=== PATIENT | female | born 1955 | race Caucasian/White ===

== ENCOUNTER 2018-09-15 14:07 | Emergency (ER) | payer MEDICARE ==
[~2018-09-15] VITALS: Ht 167.6 cm; Wt 63.0 kg
--- OUTSIDE RECORDS SUMMARY | 2018-09-15 14:11 | XMS REPORT ---
Author Author [facility] Address Unknown Phone Unavailable Care Team Providers Care Commercial Artist Name Role Phone Unavailable Unavailable Payers Payer Name Policy Type Policy Number Effective Date Expiration Date Problems This patient has no known problems. Allergies, Adverse Reactions, Alerts Allergy Name Allergy Type Status Severity Reaction(s) Onset Date Inactive Date Treating Clinician Comments levofloxacin DA Active U 2018-08-31 00:00:00 levofloxacin DA Active U 2018-08-11 00:00:00 Medications This patient has no known medications.
--- OUTSIDE RECORDS SUMMARY | 2018-09-15 14:11 | XMS REPORT | Clinical Summary ---
Author Author [facility] Organization [facility] Address Unknown Phone Unavailable Care Team Providers Care Retail Service Representative Name Role Phone Ramiro Elizabeth PCP Allergies No Known Allergies Medications End Date Status Medication Sig Dispensed Refills Start Date 09/15/2017 Discontinued aspirin 325 MG tablet Take 650 mg 0 by mouth every 6 (six) hours as needed (migraine). 10/15/2017 docusate sodium (COLACE) Take 1 100 capsule 1 100 MG capsule capsule (100 7 mg total) by mouth 2 (two) times a day as needed for constipation for up to 30 days. 10/15/2017 rivaroxaban (XARELTO) 20 Take 1 tablet 30 tablet 0 mg tablet (20 mg total) 7 by mouth daily for 30 days. 09/25/2017 HYDROcodone-acetaminophen Take 1 tablet 50 tablet 0 (NORCO) 5-325 mg per by mouth 7 tabletIndications: every 6 (six) Fracture, hours as intertrochanteric, right needed for femur, closed, initial moderate pain encounter (HCC) for up to 7 days. Max Daily Amount: 4 tablets 10/15/2017 HYDROcodone-acetaminophen Take 1 tablet 30 tablet 0 (NORCO) 5-325 mg per by mouth 8 tabletIndications: every 6 (six) Fracture, hours as intertrochanteric, right needed for femur, closed, initial moderate pain encounter (HCC) for up to 7 days. Max Daily Amount: 4 tablets 12/15/2017 traMADol (ULTRAM) 50 mg Take 1 tablet 60 tablet 0 tablet (50 mg total) 8 by mouth every 6 (six) hours as needed for moderate pain for up to 33 days. 12/15/2017 HYDROcodone-acetaminophen Take 1 tablet 30 tablet 0 (NORCO) 5-325 mg per by mouth 8 tablet every 4 (four) hours as needed for moderate pain or severe pain for up to 33 days. Max Daily Amount: 6 tablets Active Problems Problem Noted Date Fracture, intertrochanteric, right femur, closed, initial encounter 09/11/2017 Encounters Care Team Description Date Type Specialty Eve Kulkarni MA Fracture, intertrochanteric, right femur, closed, initial encounter (Primary Dx) 02/09/2018 Orders Only Orthopedic Surgery Eve Kulkarni MA Fracture, intertrochanteric, right femur, closed, initial encounter (Primary Dx) 01/23/2018 Orders Only Orthopedic Surgery Roro Santana MA 11/28/2017 Telephone Orthopedic Surgery Eyal Fabian MD Fracture, intertrochanteric, right femur, closed, initial encounter (Primary Dx) 11/12/2017 Office Visit Orthopedic Surgery Linda Bales MA Fracture, intertrochanteric, right femur, closed, initial encounter (Primary Dx) 10/29/2017 Orders Only Orthopedic Surgery Eyal Fabian MD Fracture, intertrochanteric, right femur, closed, initial encounter (Primary Dx) 10/08/2017 Office Visit Orthopedic Surgery Roro Santana MA 10/08/2017 Telephone Orthopedic Surgery Roro Santana MA 10/07/2017 Telephone Orthopedic Surgery Eyal Fabian MD 10/03/2017 Telephone Orthopedic Surgery Eyal Fabian MD Fracture, intertrochanteric, right femur, closed, initial encounter (Primary Dx) 09/18/2017 Office Visit Orthopedic Surgery Ana Hill RN 09/16/2017 Patient Quality Outreach Roro Santana MA 09/15/2017 Orders Only Orthopedic Surgery Eyal Fabian MD 09/15/2017 Telephone Orthopedic Surgery Chuy Valdovinos MD [place], Sandhya-Rani, MD Fracture, intertrochanteric, right femur, closed, initial encounter (Primary Dx) 09/11/2017 Hospital General Surgery - Encounter 09/15/2017 after 09/14/2017 Social History Date Tobacco Use Types Packs/Day Years Used Never Smoker Smokeless Tobacco: Never Used Alcohol Use Drinks/Week oz/Week Comments Yes 35 Cans of 21.0 beer Sex Assigned at Date Recorded Not on file Industry Job Start Date Occupation Not on file Not on file Not on file Travel End Travel History Travel Start No recent travel history available. Last Filed Vital Signs Time Taken Vital Sign Reading 11/12/2017 10:21 AM APPLICATION TECHNICIAN Blood Pressure 143/87 11/12/2017 10:21 AM APPLICATION TECHNICIAN Pulse 114 09/15/2017 12:25 PM APPLICATION TECHNICIAN Temperature 37.1 C (98.8 F) 09/15/2017 12:25 PM APPLICATION TECHNICIAN Respiratory Rate 17 09/15/2017 12:25 PM APPLICATION TECHNICIAN Oxygen Saturation 99% - Inhaled Oxygen - Concentration 11/12/2017 10:21 AM APPLICATION TECHNICIAN Weight 58.5 kg (129 lb) 11/12/2017 10:21 AM APPLICATION TECHNICIAN Height 167.6 cm (5' 6") 11/12/2017 10:21 AM APPLICATION TECHNICIAN Body Mass Index 20.82 Plan of Treatment Health Maintenance Due Date Last Done Comments CERVICAL CANCER SCREENING 1977 BREAST CANCER SCREENING 2006 COLON CANCER SCREENING 2006 SHINGLES VACCINES (1 of 2006 2) INFLUENZA VACCINE 04/29/2018 Implants Device Identifier Shelf Expiration Date Model / Serial / Lot Implanted Type Area Manufactur er 1896 [id number] / / Screw Bone Lkng Fulthrd Ti 5x35mm - Hip Joint Right: Hip MORIAH [id number] Implants ORTHOPEDIC Implanted: Qty: 1 on 09/12/2017 by Eyal Loera MD [id number] / / [id number] Nail Im Trchntrc W/ Set Scr Ti Intramedul Right: Hip MORIAH 125deg [id number] Strl - radha Nail ORTHOPEDIC [id number] Implanted: Qty: 1 on 09/12/2017 by Eyal Fabian MD [id number] / / Screw Bone Lag Ti 10.5x90mm - Orthopedic Right: Hip MORIAH [id number] Trauma ORTHOPEDIC Implanted: Qty: 1 on 09/12/2017 by Implants Eyal Loera MD Procedures Comments Procedure Name Priority Date/Time Associated Diagnosis XR HIP 2-3 VIEWS RIGHT Routine 11/12/2017 Fracture, 9:52 AM APPLICATION TECHNICIAN intertrochanteric, right femur, closed, initial encounter XR HIP 2-3 VIEWS RIGHT Routine 10/08/2017 Fracture, 10:26 AM APPLICATION TECHNICIAN intertrochanteric, right femur, closed, initial encounter XR HIP 2-3 VIEWS RIGHT Routine 09/18/2017 Fracture, 10:52 AM APPLICATION TECHNICIAN intertrochanteric, right femur, closed, initial encounter ZZESTIMATED GFR Routine 09/14/2017 4:30 AM APPLICATION TECHNICIAN BASIC METABOLIC PANEL Routine 09/14/2017 4:30 AM APPLICATION TECHNICIAN HC COMPLETE BLD COUNT Routine 09/14/2017 W/AUTO DIFF 4:30 AM APPLICATION TECHNICIAN after 09/14/2017 Results * XR Hip 2-3 View Right (11/12/2017 9:52 AM APPLICATION TECHNICIAN) Only the most recent of 3 results within the time period is included. Narrative Performed At [facility] AP and frog leg lateral views of the right hip were obtained demonstrating a intertrochanteric fracture of hip fixed with a cephallomedullary device. Expected compression at the fracture site noted. No visible hardware failure or loosening. Performing Organization Address City/[facility]/Zipcode Phone Number [facility] [address] [place] [address] * Estimated GFR (09/14/2017 4:30 AM APPLICATION TECHNICIAN) GFR Non Af Amer 85 mL/min/1.73 m2 [facility] DEPARTMENT OF PATHOLOGY AND GENOMIC MEDICINE GFR Af Amer >90 mL/min/1.73 m2 [facility] DEPARTMENT OF Comment: PATHOLOGY AND Chronic kidney disease: <60 GENOMIC MEDICINE mL/min/1.73m2 Kidney failure: <15 mL/min/1.73m2 The estimated GFR is calculated from the IDMS-traceable Modification of Diet in Renal Disease Equation. The accuracy of the calculation is poor when the creatinine is normal. Calculated values >90 mL/min/1.73m2 are not reported. This equation has not been validated in children (<18 years), women, the elderly (>70 years), or ethnic groups other than Caucasians and Americans. Specimen Plasma specimen Performing Organization Address City/State/Zipcode Phone Number [facility] DEPARTMENT [address] [place] [address] PATHOLOGY AND GENOMIC MEDICINE * CBC with platelet and differential (09/14/2017 4:30 AM APPLICATION TECHNICIAN) WBC 7.83 4.50 - 11.00 k/uL [facility] DEPARTMENT OF PATHOLOGY AND GENOMIC MEDICINE RBC 3.00 (L) 4.20 - 5.50 m/uL [facility] OF PATHOLOGY AND GENOMIC MEDICINE HGB 10.0 (L) 12.0 - 16.0 g/dL [facility] DEPARTMENT OF PATHOLOGY AND GENOMIC MEDICINE HCT 29.5 (L) 37.0 - 47.0 % [facility] DEPARTMENT OF PATHOLOGY AND GENOMIC MEDICINE MCV 98.3 82.0 - 100.0 fL [facility] DEPARTMENT OF PATHOLOGY AND GENOMIC MEDICINE MCH 33.3 27.0 - 34.0 pg [facility] DEPARTMENT OF PATHOLOGY AND GENOMIC MEDICINE MCHC 33.9 31.0 - 37.0 g/dL [facility] OF PATHOLOGY AND GENOMIC MEDICINE RDW - SD 43.2 37.0 - 55.0 fL [facility] OF PATHOLOGY AND GENOMIC MEDICINE MPV 12.0 8.8 - 13.2 fL [facility] DEPARTMENT OF PATHOLOGY AND GENOMIC MEDICINE Platelet count 162 150 - 400 k/uL [facility] DEPARTMENT PATHOLOGY AND GENOMIC MEDICINE Nucleated RBC 0.00 /100 WBC [facility] DEPARTMENT OF PATHOLOGY AND GENOMIC MEDICINE Neutrophils 61.1 39.0 - 69.0 % [facility] DEPARTMENT OF PATHOLOGY AND GENOMIC MEDICINE Lymphocytes 23.0 (L) 25.0 - 45.0 % [facility] DEPARTMENT OF PATHOLOGY AND GENOMIC MEDICINE Monocytes 14.3 (H) 0.0 - 10.0 % [facility] DEPARTMENT OF PATHOLOGY AND GENOMIC MEDICINE Eosinophils 0.9 0.0 - 5.0 % [facility] DEPARTMENT OF PATHOLOGY AND GENOMIC MEDICINE Basophils 0.3 0.0 - 1.0 % [facility] DEPARTMENT PATHOLOGY AND GENOMIC MEDICINE Immature granulocytes 0.4Comment: "Immature 0.0 - 1.0 % [facility] DEPARTMENT OF granulocytes" (promyelocytes, PATHOLOGY AND myelocytes, metamyelocytes) [facility] Specimen Blood Performing Organization Address City/State/Zipcode Phone Number [facility] [address] [place] [address] PATHOLOGY AND GENOMIC MEDICINE * Basic metabolic panel (09/14/2017 4:30 AM APPLICATION TECHNICIAN) Sodium 138 135 - 148 mEq/L [facility] DEPARTMENT OF PATHOLOGY AND GENOMIC MEDICINE Potassium 4.0 3.5 - 5.0 mEq/L [facility] DEPARTMENT OF PATHOLOGY AND GENOMIC MEDICINE Chloride 99 98 - 112 mEq/L [facility] DEPARTMENT OF PATHOLOGY AND GENOMIC MEDICINE CO2 26 24 - 31 mEq/L [facility] DEPARTMENT OF PATHOLOGY AND GENOMIC MEDICINE Anion gap 13 7 - 15 mEq/L [facility] DEPARTMENT OF Comment: PATHOLOGY AND Starting from December [facility] MEDICINE , anion gap calculation no longer incorporates potassium. Please note the change. BUN 9 8 - 23 mg/dL [facility] DEPARTMENT OF PATHOLOGY AND GENOMIC MEDICINE Creatinine 0.7 0.5 - 0.9 mg/dL [facility] DEPARTMENT OF PATHOLOGY AND GENOMIC MEDICINE Glucose 133 (H) 65 - 99 mg/dL [facility] DEPARTMENT OF PATHOLOGY AND GENOMIC MEDICINE Calcium 9.4 8.8 - 10.2 mg/dL [facility] DEPARTMENT OF PATHOLOGY AND GENOMIC MEDICINE Specimen Plasma specimen Performing Organization Address City/State/Zipcode Phone Number [facility] DEPARTMENT [address] [place] [address] PATHOLOGY AND GENOMIC MEDICINE after 09/14/2017 Insurance Payer Benefit Subscriber ID Type Phone Address Plan / Group UHC MEDICARE AARP xxxxxxxxx [facility] [place] COM[place]TE MCR Advance Directives Patient has advance care planning documents, and code status on file. For more i nformation, please contact: Elvin Khan [address] [facility] [place] [address] Date Inactivated Comments Code Status Date Activated 09/15/2017 7:09 PM Full Code 09/12/2017 5:44 PM Code Status decision reached by: Patient
== END 2018-09-15 15:15 | disposition left against medical advice (07) ==
LOC: ER 14:07
DX: J34.89 Other specified disorders of nose and nasal sinuses (principal)

== ENCOUNTER 2018-12-30 16:40 | Emergency (ER) | payer MEDICARE ==
[~2018-12-30] VITALS: Ht 167.6 cm; Wt 63.0 kg
--- OUTSIDE RECORDS SUMMARY | 2018-12-30 16:43 | XMS REPORT | Clinical Summary ---
Author Author [facility] Organization [place] [facility] Address Unknown Phone Unavailable Care Team Providers Care Battalion Chief Name Role Phone Ramiro Elizabeth PCP Allergies No Known Allergies Medications No known medications Active Problems Problem Noted Date Fracture, intertrochanteric, right femur, closed, initial encounter 09/11/2017 Encounters Care Team Description Date Type Specialty Eve KulkarniRAYNE Fracture, intertrochanteric, right femur, closed, initial encounter (Primary Dx) 02/09/2018 Orders Only Orthopedic Surgery Kulkarni Eve, MA Fracture, intertrochanteric, right femur, closed, initial encounter (Primary Dx) 01/23/2018 Orders Only Orthopedic Surgery after 12/29/2017 Social History Date Tobacco Use Types Packs/Day Years Used Never Smoker Smokeless Tobacco: Never Used Alcohol Use Drinks/Week oz/Week Comments Yes 35 Cans of 21.0 beer Sex Assigned at Date Recorded Not on file Industry Job Start Date Occupation Not on file Not on file Not on file Travel End Travel History Travel Start No recent travel history available. Last Filed Vital Signs Not on file Plan of Treatment Health Maintenance Due Date Last Done Comments CERVICAL CANCER SCREENING 1977 BREAST CANCER SCREENING 2006 COLON CANCER SCREENING 2006 SHINGLES VACCINES (#1) 2006 INFLUENZA VACCINE 04/29/2018 Implants Device Identifier Shelf Expiration Date Model / Serial / Lot Implanted Type Area Manufactur er 1896 [id number] / / Screw Bone Lkng Fulthrd Ti 5x35mm - Hip Joint Right: Hip MORIAH [id number] Implants ORTHOPEDIC Implanted: Qty: 1 on 09/12/2017 by Eyal Loera MD [id number] / / [id number] Nail Im Trchntrc W/ Set Scr Ti Intramedul Right: Hip MORIAH 125deg [id number] Strl - radha Nail ORTHOPEDIC [id number] Implanted: Qty: 1 on 09/12/2017 by Eyal Fabian MD [id number] / / Screw Bone Lag Ti 10.5x90mm - Orthopedic Right: Hip MORIAH [id number] Trauma ORTHOPEDIC Implanted: Qty: 1 on 09/12/2017 by Implants S Eyal Fabian MD Results Not on fileafter 12/29/2017 Insurance Payer Benefit Subscriber ID Type Phone Address Plan / Group UHC MEDICARE AARP xxxxxxxxx O MEDICARE COMPLETE MCR Advance Directives Patient has advance care planning documents, and code status on file. For more i nformation, please contact: Elvin Khan [address] [facility] [place] [address] Date Inactivated Comments Code Status Date Activated 09/15/2017 7:09 PM Full Code 09/12/2017 5:44 PM Code Status decision reached by: Patient
--- NOTE | 2018-12-30 18:40 | Diagnostic Imaging Report ---
Radiographs of the right knee - 3 views HISTORY: Pain COMPARISON: None available. FINDINGS: Bones: Nondisplaced posterior patellar fracture. Osseous alignment is within normal limits. Joints: Scattered degenerative change. Soft tissues: Soft tissue swelling. Large suprapatellar effusion. IMPRESSION: Nondisplaced posterior patellar fracture with large suprapatellar effusion. Signed by: Dr. Darin Blevins M.D. on 12/30/2018 6:36 PM
[2018-12-30] MEDS ORDERED: ONDANSETRON HCL 4 MG ORAL DISINTEGRATING TAB PO ONE (19:00)
[2018-12-30] MEDS ORDERED: HYDROCODONE/APAP 5MG-325MG TAB PO ONE (19:00)
[2018-12-30] MEDS ORDERED: TYLENOL WITH C1 EACH PO (19:14)
[2018-12-30] MEDS ORDERED: ZOFRAN4 MG SL (19:14)
== END 2018-12-30 20:00 | disposition home or self-care (01) ==
LOC: ER 16:40
DX: M25.561 Pain in right knee (principal); M25.461 Effusion, right knee; S82.034A Nondisplaced transverse fracture of right patella, initial encounter for closed fracture; W01.0XXA Fall on same level from slipping, tripping and stumbling without subsequent striking against object, initial encounter; Y93.01 Activity, walking, marching and hiking; Y92.008 Other place in unspecified non-institutional (private) residence as the place of occurrence of the external cause; I10 Essential (primary) hypertension
CPT/HCPCS: 29530; 73562; 99283; Q0162